=== PATIENT | female | born 1950 | race Caucasian/White ===

== ENCOUNTER → 2016-03-07 | Outpatient (CLI) | payer OTHER ==
--- NOTE | 2016-03-07 15:13 | MA ---
Screening Digital Mammogram Clinical Indications: Routine screening. Technique: Standard cephalocaudal and mediolateral oblique projections are obtained. This examinati on was processed by the [employer] computer aided detection system. Comparison: February 2014, October 2012 and January 2010 Breast density: C; The breast tissue is heterogeneously dense, which could obscure detection of small masses. Findings: CAD was reviewed. No suspicious findings are identified. Impression: Negative mammogram. BI-RADS 1. Recommendation: Routine screening is recommended in one year, as long as physical examination is aidee ign in this patient with moderately dense breast parenchyma. [facility] will send a result letter to the patient. Negative mammography should not preclude additional workup of a clinically suspicious finding. The patient's information is entered into a reminder system with a target due date for her next mammo gram.
--- NOTE | 2016-03-09 08:37 | DX ---
Bone Densitometry Indication: Osteopenia. Technique: DEXA scan was performed on [employer] W Bone Densitometer. Comparison Study: September 21, 2008. Results: Lumbar Spine (L1-L4) BMD: 0.851 T-score: -1.8 Prior BMD: 0.877 Percent change: -3% Total Hip (Right) BMD: 0.829 T-score: -0.9 Femoral Neck (Right) BMD: 0.699 T-score: -1.3 Total Hip (Left) BMD: 0.821 T-score: -1.0 Prior BMD: 0.807 Percent change: 1.7% Femoral Neck (Left) BMD: 0.696 T-score: -1.4 Forearm (Left) BMD: 0.451 T-score: -2.2 Conclusion: Osteopenia. In comparison to the previous study from 2008, there has been a decrease in the patient's measured BM D of the lumbar spine. Additional Comments: 1. By FRAX calculation, the estimated 10-year risk of any major osteoporotic fracture is 7.8%. The e stimated 10-year risk of hip fracture is 0.8%. 2. Consider repeating this study in 2 years or as clinically indicated. NOTE: The risk of osteoporotic fracture increases approximately two-fold for each 1.0 SD decrease in T-score. The T-score represents the standard deviations from a young normal, same sex, reference po pulation. Low bone density is not the only risk factor for fracture. Clinical factors to consider include fall risk, previous osteoporotic fracture, family history of fractures, smoking, and low body weight. Patients who have an unexpectedly low BMD may need to be evaluated for secondary causes of low bone m ineral density. In comparing the present study to a prior study, lack of a significant increase or decrease in BMD ma y signify efficacy of the patient's present treatment. Bone mineral density measurements performed with densitometers produced by different manufacturers ar e not comparable. For the most reproducible BMD measurement, subsequent exams should be performed on the same densitometer.
== END ==
LOC: BMCIMAGING 11:00
PROVIDERS: ATTEND Internal Medicine
DX: Z12.31 Encounter for screening mammogram for malignant neoplasm of breast (principal); Z13.820 Encounter for screening for osteoporosis; M85.80 Other specified disorders of bone density and structure, unspecified site
CPT/HCPCS: G0202

== ENCOUNTER → 2018-08-25 | Outpatient (CLI) | payer OTHER | LOC: BMCIMAGING 14:29 ==